=== PATIENT | female | born 1950 | race Caucasian/White ===

== ENCOUNTER → 2017-10-18 | Outpatient (CLI) | payer OTHER ==
[~2017-10-18] MED LIST: OMNIPAQUE 350 MG/ML, 100ML BOTTLE ONE
== END | disposition home or self-care (01) ==
LOC: RAD 11:35
PROVIDERS: ATTEND Surgery
DX: C50.912 Malignant neoplasm of unspecified site of left female breast (principal); M47.892 Other spondylosis, cervical region; E04.2 Nontoxic multinodular goiter; K76.89 Other specified diseases of liver
CPT/HCPCS: 36415; 71260; 74177; 78306; 82565; A9503; Q9967

== ENCOUNTER → 2017-11-02 | Outpatient (CLI) | payer OTHER | END | disposition home or self-care (01) | LOC: ROC 08:41 | PROVIDERS: ATTEND Radiology Radiation Oncology | DX: C50.912 Malignant neoplasm of unspecified site of left female breast (principal) | CPT/HCPCS: 99214; G0463 ==

== ENCOUNTER 2017-11-29 11:36 | Inpatient (IN) | payer OTHER ==
[~2017-11-29] VITALS: Ht 170.2 cm; Wt 82.4 kg
[~2017-11-29 11:36] MED LIST changes: +BUPIVACAINE/PF 0.5% ONE; +EPINEPHRINE 1 MG/ML, 1ML ONE; -OMNIPAQUE 350 MG/ML, 100ML BOTTLE ONE
[2017-11-29] MEDS ORDERED: LACTATED RINGERS 1,000 ML IV SCH (11:52)
[2017-11-29] MEDS ORDERED: ONDANSETRON 2MG/ML, 2ML IVPush ONE (12:00)
[2017-11-29] MEDS ORDERED: SCOPOLAMINE PATCH, 1.5MG PATCH.TD72 TD ONE (12:00)
[2017-11-29] MEDS ORDERED: GABAPENTIN 300 MG CAPSULE PO ONE (12:00)
[2017-11-29] MEDS ORDERED: ACETAMINOPHEN 500 MG TABLET PO ONE (12:30)
[2017-11-29] MEDS ORDERED: ISOSULFAN BLUE 10 MG/ML, 5ML IV ONE (13:26)
[2017-11-29] MEDS ORDERED: GENTAMICIN 80 MG/2 ML ONE (13:26)
[2017-11-29] MEDS ORDERED: BACITRACIN 50,000 UNIT ONE (13:26)
[2017-11-29] MEDS ORDERED: CEFAZOLIN 1,000 MG ONE ×3 (13:26→13:55)
[2017-11-29] MEDS ORDERED: FENTANYL PF 250 MCG/5ML ONE ×2 (13:27→15:05)
[2017-11-29] MEDS ORDERED: MIDAZOLAM 1 MG/ML, 2ML ONE (13:27)
[2017-11-29] MEDS ORDERED: PROPOFOL 10 MG/ML, 20ML ONE (13:57)
[2017-11-29] MEDS ORDERED: DEXAMETHASONE 4 MG/ML, 1ML ONE ×3 (14:02)
[2017-11-29] MEDS ORDERED: ONDANSETRON 2MG/ML, 2ML ONE (14:02)
[2017-11-29] MEDS: FENTANYL PF 100 MCG/2ML IV PRN ×2 (16:31→16:39)
[2017-11-29] MEDS ORDERED: FENTANYL PF 100 MCG/2ML ONE ×2 (16:32→16:44)
[2017-11-29] MEDS ORDERED: OXYcodone 5 MG/5 ML ORAL.SOL UDC ONE (16:44)
[2017-11-29] MEDS ORDERED: MEPERIDINE/PF 50 MG/ML ONE (16:52)
[2017-11-29] MEDS ORDERED: MEPERIDINE/PF 25MG/0.5ML IVPush PRN (17:00)
[2017-11-29] MEDS ORDERED: ONDANSETRON 2MG/ML, 2ML IV PRN ×2 (17:00→18:00)
[2017-11-29] MEDS ORDERED: ONDANSETRON ODT 8 MG PO PRN (17:00)
[2017-11-29] MEDS ORDERED: ALBUTEROL SULFATE 2.5 MG/3 ML NPPB PRN (17:00)
[2017-11-29] MEDS ORDERED: PROMETHAZINE 25 MG/ML, 1ML IV PRN (17:00)
[2017-11-29] MEDS ORDERED: MIDAZOLAM 1 MG/ML, 2ML IV PRN (17:00)
[2017-11-29] MEDS ORDERED: LORazepam 2 MG/ML, 1ML IVPush PRN (17:00)
[2017-11-29] MEDS ORDERED: HYDROmorphone 1 MG/ML, 1ML IV PRN (17:00)
[2017-11-29] MEDS ORDERED: PROMETHAZINE 12.5 MG SUPP PR PRN (17:00)
[2017-11-29] MEDS ORDERED: LABETALOL 5MG/ML, 20ML IV PRN (17:00)
[2017-11-29] MEDS ORDERED: hydrALAzine 20 MG/ML, 1ML IV PRN ×2 (17:00→18:00)
[2017-11-29] MEDS ORDERED: OXYcodone 5 MG/5 ML ORAL.SOL UDC PO PRN (17:00)
[2017-11-29 17:45] VITALS: BP 156/81
[2017-11-29] MEDS ORDERED: ACETAMINOPHEN 650 MG SUPP PR PRN (18:00)
[2017-11-29] MEDS ORDERED: DIPHENHYDRAMINE 50 MG/ML, 1ML IV PRN (18:00)
[2017-11-29] MEDS ORDERED: DIPHENHYDRAMINE 25 MG CAPSULE PO PRN (18:00)
[2017-11-29] MEDS ORDERED: OXYcodone/APAP 5/325MG TABLET PO PRN (18:00)
[2017-11-29] MEDS ORDERED: ENALAPRILAT 1.25 MG/ML, 2ML IV PRN (18:00)
[2017-11-29] MEDS ORDERED: morphine SULFATE 10 MG/ML, 1ML IV PRN (18:00)
[2017-11-29] MEDS ORDERED: ACETAMINOPHEN 325 MG TABLET PO PRN (18:00)
[2017-11-29] MEDS ORDERED: POTASSIUM CHLORIDE 20 MEQ in SODIUM CHLORIDE 0.9% 1,000 ML IV SCH (18:00)
[2017-11-29 19:03] VITALS: BP 121/57
[2017-11-29 23:54] VITALS: BP 92/45
[2017-11-30 03:46] VITALS: BP 113/62
[2017-11-30 07:58] VITALS: BP 105/58
[2017-11-30] MEDS ORDERED: ENOXAPARIN 40 MG/0.4 ML SQ SCH (09:00)
== END 2017-11-30 12:41 | disposition home or self-care (01) | DRG 580 ==
LOC: OUT 11:36 → 4NOR 17:43 → OUT 17:51 → DCLOUNGE 11-30 12:30
PROVIDERS: ADMIT Surgery; ATTEND Surgery
PROC: 07T60ZZ Resection of Left Axillary Lymphatic, Open Approach (ICD-10-PCS; 2017-11-29)
PROC: 3E0T3BZ Introduction of Anesthetic Agent into Peripheral Nerves and Plexi, Percutaneous Approach (ICD-10-PCS; 2017-11-29)
PROC: 0HRU0JZ Replacement of Left Breast with Synthetic Substitute, Open Approach (ICD-10-PCS; principal; 2017-11-29 13:30)
DX: C50.912 Malignant neoplasm of unspecified site of left female breast (principal); C79.89 Secondary malignant neoplasm of other specified sites; Z80.8 Family history of malignant neoplasm of other organs or systems; Z87.891 Personal history of nicotine dependence; Z88.8 Allergy status to other drugs, medicaments and biological substances
CPT/HCPCS: 88307; C1729; J0171; J0690; J1100; J1650; J2175; J2250; J2405; J2704; J3010; J3480; J3490; C1762; J1580; J7030; J7120

== ENCOUNTER → 2018-07-05 | Outpatient (CLI) | payer OTHER ==
[~2018-07-05] MED LIST changes: -BUPIVACAINE/PF 0.5% ONE; -EPINEPHRINE 1 MG/ML, 1ML ONE; +OMNIPAQUE 350 MG/ML, 100ML BOTTLE ONE
== END | disposition home or self-care (01) ==
LOC: CFH 09:08
PROVIDERS: ATTEND Internal Medicine Hematology & Oncology
DX: C50.812 Malignant neoplasm of overlapping sites of left female breast (principal); K76.89 Other specified diseases of liver; M47.816 Spondylosis without myelopathy or radiculopathy, lumbar region
CPT/HCPCS: 74160; Q9967

== ENCOUNTER 2018-11-20 14:03 | Outpatient (CLI) | payer OTHER | END 2018-11-20 23:59 | disposition home or self-care (01) | LOC: CFH 14:03 | PROVIDERS: ATTEND Internal Medicine Hematology & Oncology | DX: C50.812 Malignant neoplasm of overlapping sites of left female breast (principal); M85.80 Other specified disorders of bone density and structure, unspecified site; Z90.11 Acquired absence of right breast and nipple | CPT/HCPCS: 77065; G0279 ==

== ENCOUNTER → 2020-03-24 | Outpatient (CLI) | payer MEDICARE | END | disposition home or self-care (01) | LOC: CFH 09:46 | PROVIDERS: ATTEND Internal Medicine Hematology & Oncology | DX: C50.812 Malignant neoplasm of overlapping sites of left female breast (principal); M85.88 Other specified disorders of bone density and structure, other site; M85.89 Other specified disorders of bone density and structure, multiple sites | CPT/HCPCS: 77080 ==

== ENCOUNTER → 2020-12-09 | Outpatient (CLI) | payer MEDICARE | END | disposition home or self-care (01) | LOC: CFH 10:08 | PROVIDERS: ATTEND Internal Medicine Hematology & Oncology | DX: Z12.31 Encounter for screening mammogram for malignant neoplasm of breast (principal); Z12.39 Encounter for other screening for malignant neoplasm of breast; C50.812 Malignant neoplasm of overlapping sites of left female breast | CPT/HCPCS: 76641; 77063; 77067 ==